=== PATIENT | male | born 1975 | race Caucasian/White ===

== ENCOUNTER 2018-01-09 10:03 | Emergency (ER) | payer SELFPAY ==
[2018-01-09] MEDS ORDERED: MOTRIN PO ONE (13:09)
[2018-01-09] MEDS ORDERED: NORCO 7.5/325 PO ONE (13:09)
--- NOTE | 2018-01-09 13:09 | Emergency Department Report ---
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 Patient states he has pain at the left middle finger he's has decreased range of motion secondary to pain. Patient states pain is partially 8 out of 10 in severity. Patient has no other injuries at this time. X-ray be done. Patient's blood pressure slightly elevated most likely secondary to pain. Patient was given [place] for pain
[2018-01-09] MEDS ORDERED: MOTRIN ONE (13:10)
--- NOTE | 2018-01-09 14:04 | XRay Report ---
LEFT HAND, 3 views: History: Injury to left middle finger. There is mild soft tissue swelling of the third digit. No acute osseous findings or joint pathology is detected. No radiopaque foreign body. IMPRESSION: Soft tissue swelling.
--- NOTE | 2018-01-09 15:18 | Emergency Department Report ---
ED Upper Extremity Inj HPI - General Chief Complaint: Extremity Injury, Upper Stated Complaint: LEFT HAND FINGER PAIN Time Seen by Provider: 01/09/18 13:01 Source: patient Mode of arrival: Ambulatory Limitations: Language Barrier - History of Present Illness Initial Comments: This is a 42-year-old male nontoxic, well nourished in appearance, no acute signs of distress presents to the ED with c/o of left middle finger pain. Patient stated yesterday afternoon at work a forklift his finger. Denies any numbness. Patient stated pain is aching and swelling. Patient denies any fever , chills, nausea, vomiting, chest shortness breath. Patient denies any laceration or abrasion. Patient states he has history of hypertension but is currently not taking any medication as he diet controlled. Patient denies any allergies. MD Complaint: Injury to:: right, finger -: days(s) (1) Other Extremity Injury: Fingers: Left Other Injuries: none Place: work Severity scale (0 -10): 8 Improves With: immobilization Worsens With: movement of extremity Context: direct blow, injury Associated Symptoms: denies other symptoms. denies: weakness, numbness, neck pain, suspects foreign body, nausea/vomiting, heard/felt popping sensat - Related Data Previous Rx's Medication Instructions Recorded Last Taken Type Ibuprofen [Motrin] 600 mg PO Q8H PRN #30 tablet 01/09/18 Unknown Rx Allergies Allergy/AdvReac Type Severity Reaction Status Date / Time No Known Allergies Allergy Unverified 01/09/18 11:25 ED Review of Systems ROS: Stated complaint: LEFT HAND FINGER PAIN Other details as noted in HPI Constitutional: denies: chills, fever Eyes: denies: eye pain, eye discharge, vision change ENT: denies: ear pain, throat pain Respiratory: denies: cough, shortness of breath, wheezing Cardiovascular: denies: chest pain, palpitations Endocrine: no symptoms reported Gastrointestinal: denies: abdominal pain, nausea, diarrhea Genitourinary: denies: urgency, dysuria Musculoskeletal: denies: back pain, joint swelling, arthralgia Skin: denies: rash, lesions Neurological: denies: headache, weakness, paresthesias Psychiatric: denies: anxiety, depression Hematological/Lymphatic: denies: easy bleeding, easy bruising ED Past Medical Hx - Past Medical History Previous Medical History?: Yes Hx Hypertension: Yes - Surgical History Past Surgical History?: No - Social History Smoking Status: Current Every Day Smoker Substance Use Type: Alcohol - Medications Home Medications: Home Medications Medication Instructions Recorded Confirmed Last Taken Type Ibuprofen [Motrin] 600 mg PO Q8H PRN #30 tablet 01/09/18 Unknown Rx ED Physical Exam - General Limitations: Language Barrier General appearance: alert, in no apparent distress - Head Head exam: Present: atraumatic, normocephalic - Eye Eye exam: Present: normal appearance - ENT ENT exam: Present: mucous membranes moist - Neck Neck exam: Present: normal inspection - Respiratory Respiratory exam: Present: normal lung sounds bilaterally. Absent: respiratory distress - Cardiovascular Cardiovascular Exam: Present: regular rate, normal rhythm. Absent: systolic murmur, diastolic murmur, rubs, gallop - GI/Abdominal GI/Abdominal exam: Present: soft, normal bowel sounds - Rectal Rectal exam: Present: deferred - Extremities Exam Extremities exam: Present: normal inspection, full ROM, tenderness, normal capillary refill. Absent: pedal edema, joint swelling, calf tenderness - Expanded Upper Extremity Exam Left General: Present: normal inspection Shoulder Exam: Present: normal inspection, full ROM Upper Arm exam: Present: normal inspection, full ROM Elbow exam: Present: normal inspection, full ROM Forearm Wrist exam: Present: normal inspection, full ROM Hand Wrist exam: Present: normal inspection, full ROM, tenderness, swelling. Absent: abrasion, laceration, ecchymosis, deformity, crepidus, dislocation, erythema, amputation, nail avulsion, subungual hematoma Neuro motor exam: Present: wrist extension intact, thumb opposition intact, thumb IP flexion intact, thumb adduction intact, fingers 2-5 abduction intact Neurosensory exam: Present: 2-point discrimination, radial nerve intact, ulnar nerve intact, median nerve intact Vascular: Present: vascular compromise, normal capillary refill, radial pulse, brachial pulse, ulnar pulse - Back Exam Back exam: Present: normal inspection, full ROM. Absent: tenderness, CVA tenderness (R), CVA tenderness (L), muscle spasm, paraspinal tenderness, vertebral tenderness, rash noted - Neurological Exam Neurological exam: Present: alert, oriented X3, CN II-XII intact, normal gait, reflexes normal - Psychiatric Psychiatric exam: Present: normal affect, normal mood - Skin Skin exam: Present: warm, dry, intact, normal color. Absent: rash ED Course Vital Signs 01/09/18 01/09/18 11:19 13:15 Temperature 98.1 F Pulse Rate 90 Respiratory 16 18 Rate Blood Pressure 177/100 O2 Sat by Pulse 100 Oximetry - Reevaluation(s) Reevaluation #1: 01/09/18 15:30 Patient is speaking in full sentences with no signs of distress noted. - Consultations Consultation #1: 01/09/18 15:30 Patient has been consulted with Dr. Shelton about patient history, physical exam , and labs and examined and screened patient and agrees to ED plan of care and discharge plan of care. ED Medical Decision Making - Medical Decision Making This is a 42-year-old male that presents with right finger sprain. Patient is stable and was examined by me and Dr. Shelton. X-ray obtained within normal limits and dictated by radiologist. Garza was notified of the x-ray results with no questions noted by the patient. Patient's is currently at the bedside and is currently translated. Patient received ice and Motrin in the ED. Patient received a finger metal splint for pain comfort. Patient was instructed and educated on the right therapy. At time of discharge, the patient does not seem toxic or ill in appearance. No acute signs of distress noted. Patient agrees to discharge treatment plan of care. No further questions noted by the patient. Critical care attestation.: If time is entered above; I have spent that time in minutes in the direct care of this critically ill patient, excluding procedure time. ED Disposition Clinical Impression: Sprain of left middle finger Qualifiers: Encounter type: initial encounter Sprain of finger site: unspecified site Qualified Code(s): S63.613A - Unspecified sprain of left middle finger, initial encounter Disposition: DC-01 TO HOME OR SELFCARE Is pt being admited?: No Does the pt Need Aspirin: No Condition: Stable Instructions: Finger Sprain (ED), RICE Therapy (ED), Ibuprofen (By mouth) Additional Instructions: Follow-up with a orthopedic doctor in 3-5 days or if symptoms worsen and continue return to emergency room as soon as possible. Prescriptions: Ibuprofen [Motrin] 600 mg PO Q8H PRN #30 tablet PRN Reason: Pain Referrals: PRIMARY CARE, [Primary Care Provider] - 3-5 Days NAEEM VIZCARRA MD [Staff Physician] - 3-5 Days [facility] [Outside] - 3-5 Days [facility] [Outside] - 3-5 Days Forms: Work/School Release Form(ED)
[2018-01-09 15:40] VITALS: BP 157/97
== END 2018-01-09 15:39 | disposition home or self-care (01) ==
LOC: ED 10:03
DX: S63.613A Unspecified sprain of left middle finger, initial encounter (principal); I10 Essential (primary) hypertension; F17.200 Nicotine dependence, unspecified, uncomplicated; W22.8XXA Striking against or struck by other objects, initial encounter; Y93.89 Activity, other specified; Y99.0 Civilian activity done for income or pay; Y92.69 Other specified industrial and construction area as the place of occurrence of the external cause